=== PATIENT | male | born 1975 | race Caucasian/White ===

== ENCOUNTER 2018-09-02 21:09 | Emergency (ER) | payer OTHER ==
[2018-09-02 21:29] VITALS: TEMP 98.2
[2018-09-02] MEDS ORDERED: ONDANSETRON 4 MG ODT BU ONE (21:42)
[2018-09-02] MEDS ORDERED: DOXYCYCLINE 100 MG TAB PO ONE (21:42)
[2018-09-02] MEDS ORDERED: APAP/HYDROCODONE 1 EACH TABLET PO ONE (21:43)
[2018-09-02] MEDS ORDERED: ONDANSETRON 4 MG ODT ONE (21:50)
[2018-09-02] MEDS ORDERED: APAP/HYDROCODONE 1 EACH TABLET ONE (21:50)
[2018-09-02] MEDS ORDERED: DOXYCYCLINE 100 MG TAB ONE (21:55)
[2018-09-02 22:10] VITALS: RESP 16
[2018-09-02 22:12] VITALS: BP 123/87; PULSE 100; O2SAT 98
== END 2018-09-02 22:09 | disposition home or self-care (01) | DRG 728 ==
LOC: ED 21:09
DX: N45.1 Epididymitis (principal); Z98.890 Other specified postprocedural states
CPT/HCPCS: 99282; 99283; A9270-GY